=== PATIENT | female | born 1965 | race African-American/Black ===

== ENCOUNTER 2017-06-29 09:38 | Emergency (ER) | payer OTHER ==
[2017-06-29] MEDS ORDERED: KETOROLAC 30 MG/ML 1 ML VIAL IVP STA (10:30)
[2017-06-29] MEDS ORDERED: DEXAMETHASONE SOD PHOSPHATE 10 MG/ML 1 ML VIAL IV STA (10:30)
[2017-06-29] MEDS ORDERED: SODIUM CHLORIDE 0.9% 1,000 ML IV SCH (10:30)
[2017-06-29] MEDS ORDERED: RX INFO: IV CONTRAST WAS GIVEN 1 EACH MISC MISCELLANE PRN (10:31)
--- NOTE | 2017-06-29 10:35 | ED ---
ENT HPI - General Chief complaint: ENT Stated complaint: SORE THROAT, EAR PAIN Source: patient Mode of arrival: ambulatory Limitations: no limitations - History of Present Illness Initial comments: Patient is a 51-year-old female who presents for evaluation for 5-6 day history of sore throat, bilateral ear pain, cough. Past medical history as below. Patient states over the last 5-6 days she's been having worsening sore throat. She has associated drooling. She had a T-max of 103. She has not tried any Tylenol or Motrin because she "does not do well with medications ". She feels a little bit improved today. Can swallow both liquids and solids. She has an associated productive mucus-like cough. She did cough up some a little bit of blood today. Associated nausea. She states that she is been having sweating episodes as well. She regularly sees a dentist. No poor dentition per se. No known sick contacts. She is visiting from [place]. She currently denies chest pain, shortness of breath, vomiting, diarrhea, pain or burning with urination. - Related Data Previous Rx's Medication Instructions Recorded Amoxic-Pot Clav 875-125Mg 1 tab PO Q12HR #19 tablet 06/29/17 [Augmentin 875-125] Naproxen [Naprosyn] 500 mg PO Q12HR PRN #14 tab 06/29/17 Allergies Allergy/AdvReac Type Severity Reaction Status Date / Time No Known Allergies Allergy Verified 06/29/17 10:41 Review of Systems ROS Statement: Those systems with pertinent positive or pertinent negative responses have been documented in the HPI. ROS Other: All systems not noted in ROS Statement are negative. Past Medical History Past Medical History: No Reported History History of Any Multi-Drug Resistant Organisms: None Reported Past Surgical History: No Surgical Hx Reported Past Psychological History: No Psychological Hx Reported Smoking Status: Never smoker Past Alcohol Use History: None Reported Past Drug Use History: None Reported General Exam Limitations: no limitations General appearance: alert, in no apparent distress Head exam: Present: atraumatic, normocephalic, normal inspection Eye exam: Present: normal appearance, PERRL, EOMI. Absent: scleral icterus, conjunctival injection, periorbital swelling ENT exam: Present: normal exam, mucous membranes moist, other (Bilateral tympanic membranes appear clear. No acute otitis media. Injected nasal turbinates. Posterior oropharynx is very swollen and edematous. Tonsillar swelling. No clear exudates. No fullness to the floor the mouth. No obvious periapical abscesses.). Absent: normal oropharynx Neck exam: Present: normal inspection, other (Tender anterior cervical lymphadenopathy b/l). Absent: tenderness, meningismus, lymphadenopathy Respiratory exam: Present: normal lung sounds bilaterally, other (Clear bilaterally without wheezes rales or rhonchi.). Absent: respiratory distress, wheezes, rales, rhonchi, stridor Cardiovascular Exam: Present: regular rate, normal rhythm, normal heart sounds, other (Cap Refill less than 3 seconds.). Absent: systolic murmur, diastolic murmur, rubs, gallop, clicks GI/Abdominal exam: Present: soft, normal bowel sounds. Absent: distended, tenderness, guarding, rebound, rigid Extremities exam: Present: normal inspection, full ROM, normal capillary refill. Absent: tenderness, pedal edema, joint swelling, calf tenderness Back exam: Present: normal inspection Neurological exam: Present: alert, oriented X3, CN II-XII intact Psychiatric exam: Present: normal affect, normal mood Skin exam: Present: warm, dry, intact, normal color. Absent: rash Course Vital Signs 06/29/17 06/29/17 06/29/17 10:16 12:53 13:43 Temperature 100.0 F H 98 F 98.9 F Pulse Rate 94 81 87 Respiratory 20 18 16 Rate Blood Pressure 140/83 139/88 147/92 O2 Sat by Pulse 98 97 94 L Oximetry Medical Decision Making - Medical Decision Making Patient is a 51-year-old female who presents for evaluation for sore throat, drooling, fevers, bilateral ear pain and productive cough over the last I've to 6 days. Somewhat improved but pain still persists. She is tachycardic at 94, tachypnea 20. Low-grade fever of 100.0. 2 out of 4 surgical criteria with suspected source being upper respiratory. Ordered 30 mL per KG bolus with basic labs and cultures. We'll do a CT of the soft tissue neck. 2 view chest x -ray. Decadron. Toradol. No known medical conditions and is regularly seen by a physician. 1145: I reevaluated the patient. She states that she has some symptomatic improvement with medications. Reviewed CBC and CMP. Within normal limits. Awaiting imaging. -CT imaging revealed no epiglottitis or retropharyngeal abscess. I spoke with radiologist who again confirmed that in the read. She does have evidence of tonsillitis with multiple anterior cervical lymph nodes. Her strep test was positive. I reviewed her laboratory studies which were largely unremarkable. Again reevaluated the patient and she states dramatic improvement in her symptoms. No drooling. Her voice is still a little muffled. Gave a dose of Augmentin here. Discussed that the patient likely has a severe strep throat. We'll discharge home with a course of Augmentin. We'll also provide her prescription for naproxen for pain. Can alternate with Tylenol. I provided her with follow-up. If she decides to stay in the area for a prolonged time. She will otherwise follow up with her primary care physician in [place]. I discussed specific signs and symptoms on when to return to the emergency department for further evaluation. She voiced understanding and will return if she has any worsening symptoms. - Lab Data Result diagrams: 06/29/17 10:54 06/29/17 10:54 Lab Results 06/29/17 06/29/17 06/29/17 Range/Units 10:54 10:54 10:54 WBC 9.8 (3.8-10.6) k/uL RBC 4.18 (3.80-5.40) m/uL Hgb 12.7 (11.4-16.0) gm/dL Hct 39.2 (34.0-46.0) % MCV 93.8 (80.0-100.0) fL MCH 30.3 (25.0-35.0) pg MCHC 32.4 (31.0-37.0) g/dL RDW 13.5 (11.5-15.5) % Plt Count 321 (150-450) k/uL Neutrophils % 71 % Lymphocytes % 16 % Monocytes % 7 % Eosinophils % 2 % Basophils % 1 % Neutrophils # 6.9 (1.3-7.7) k/uL Lymphocytes # 1.6 (1.0-4.8) k/uL Monocytes # 0.7 (0-1.0) k/uL Eosinophils # 0.2 (0-0.7) k/uL Basophils # 0.1 (0-0.2) k/uL PT (9.0-12.0) sec INR (<1.2) APTT (22.0-30.0) sec Sodium 140 (137-145) mmol/L Potassium 3.9 (3.5-5.1) mmol/L Chloride 103 (98-107) mmol/L Carbon Dioxide 28 (22-30) mmol/L Anion Gap 9 mmol/L BUN 9 (7-17) mg/dL Creatinine 0.80 (0.52-1.04) mg/dL Est GFR (MDRD) Af Amer >60 (>60 ml/min/1.73 sqM) Est GFR (MDRD) Non-Af >60 (>60 ml/min/1.73 sqM) Glucose 258 H (74-99) mg/dL Plasma Lactic Acid Mta 1.0 (0.7-2.0) mmol/L Calcium 9.1 (8.4-10.2) mg/dL Magnesium 1.9 (1.6-2.3) mg/dL Total Bilirubin 0.8 (0.2-1.3) mg/dL AST 10 L (14-36) U/L ALT 25 (9-52) U/L Alkaline Phosphatase 83 (38-126) U/L Total Protein 7.2 (6.3-8.2) g/dL Albumin 3.9 (3.5-5.0) g/dL Urine Color Urine Appearance (Clear) Urine pH (5.0-8.0) Ur Specific [place] (1.001-1.035) Urine Protein (Negative) Urine Glucose (UA) (Negative) Urine Ketones (Negative) Urine Blood (Negative) Urine Nitrite (Negative) Urine Bilirubin (Negative) Urine Urobilinogen (<2.0) mg/dL Ur Leukocyte Esterase (Negative) Urine RBC (0-5) /hpf Urine WBC (0-5) /hpf Ur Squamous Epith Cells (0-4) /hpf Hyaline Casts (0-2) /lpf Urine Mucus (None) /hpf Group A Strep Rapid (Negative) 06/29/17 06/29/17 06/29/17 Range/Units 10:54 12:24 12:47 WBC (3.8-10.6) k/uL RBC (3.80-5.40) m/uL Hgb (11.4-16.0) gm/dL Hct (34.0-46.0) % MCV (80.0-100.0) fL MCH (25.0-35.0) pg MCHC (31.0-37.0) g/dL RDW (11.5-15.5) % Plt Count (150-450) k/uL Neutrophils % % Lymphocytes % % Monocytes % % Eosinophils % % Basophils % % Neutrophils # (1.3-7.7) k/uL Lymphocytes # (1.0-4.8) k/uL Monocytes # (0-1.0) k/uL Eosinophils # (0-0.7) k/uL Basophils # (0-0.2) k/uL PT 10.2 (9.0-12.0) sec INR 1.0 (<1.2) APTT 22.4 (22.0-30.0) sec Sodium (137-145) mmol/L Potassium (3.5-5.1) mmol/L Chloride (98-107) mmol/L Carbon Dioxide (22-30) mmol/L Anion Gap mmol/L BUN (7-17) mg/dL Creatinine (0.52-1.04) mg/dL Est GFR (MDRD) Af Amer (>60 ml/min/1.73 sqM) Est GFR (MDRD) Non-Af (>60 ml/min/1.73 sqM) Glucose (74-99) mg/dL Plasma Lactic Acid Mat (0.7-2.0) mmol/L Calcium (8.4-10.2) mg/dL Magnesium (1.6-2.3) mg/dL Total Bilirubin (0.2-1.3) mg/dL AST (14-36) U/L ALT (9-52) U/L Alkaline Phosphatase (38-126) U/L Total Protein (6.3-8.2) g/dL Albumin (3.5-5.0) g/dL Urine Color Yellow Urine Appearance Clear (Clear) Urine pH 6.0 (5.0-8.0) Ur Specific [place] >1.050 H (1.001-1.035) Urine Protein 1+ H (Negative) Urine Glucose (UA) Trace H (Negative) Urine Ketones 1+ H (Negative) Urine Blood Negative (Negative) Urine Nitrite Negative (Negative) Urine Bilirubin Negative (Negative) Urine Urobilinogen 4.0 (<2.0) mg/dL Ur Leukocyte Esterase Negative (Negative) Urine RBC 2 (0-5) /hpf Urine WBC 2 (0-5) /hpf Ur Squamous Epith Cells 14 H (0-4) /hpf Hyaline Casts 3 H (0-2) /lpf Urine Mucus Few H (None) /hpf Group A Strep Rapid Positive A (Negative) Disposition Clinical Impression: Strep throat Disposition: HOME SELF-CARE Condition: Good Instructions: Strep Throat (ED) Prescriptions: Amoxic-Pot Clav 875-125Mg [Augmentin 875-125] 1 tab PO Q12HR #19 tablet Naproxen [Naprosyn] 500 mg PO Q12HR PRN #14 tab PRN Reason: Pain Referrals: None,Stated [Primary Care Provider] - 1-2 days Kevin Marvin MD [REFERRING] - 1-2 days
[2017-06-29] MEDS: SODIUM CHLORIDE 0.9% 500 ML IV SCH ×3 (11:01→13:38)
[2017-06-29 11:17] LABS: Basophils # (A) 0.1 k/uL (0-0.2); Basophils % (A) 1 %; CH 30.5; CHCM 32.7; Eosinophils # (A) 0.2 k/uL (0-0.7); Eosinophils % (A) 2 %; HCT 39.2 % (34.0-46.0); HDW 2.44; HGB 12.7 gm/dL (11.4-16.0); Luc # (Auto) 0.29; Luc % (Auto) 3; Lymphocytes # (A) 1.6 k/uL (1.0-4.8); Lymphocytes % (A) 16 %; MCH 30.3 pg (25.0-35.0); MCHC 32.4 g/dL (31.0-37.0); MCV 93.8 fL (80.0-100.0); Mean Platelet Volume 7.5; Monocytes # (A) 0.7 k/uL (0-1.0); Monocytes % (A) 7 %; Neutrophils # (A) 6.9 k/uL (1.3-7.7); Neutrophils % (A) 71 %; RBC 4.18 m/uL (3.80-5.40); RDW 13.5 % (11.5-15.5); WBC 9.8 k/uL (3.8-10.6); WBC (Perox) 9.11
[2017-06-29 11:24] LABS: Partial Thromboplastin Time 22.4 sec (22.0-30.0); Prothrombin Time 10.2 sec (9.0-12.0)
[2017-06-29 11:28] LABS: ALT 25 U/L (9-52); AST 10 U/L (14-36); Alkaline Phosphatase 83 U/L (38-126); Anion Gap 9 mmol/L; Blood Urea Nitrogen 9 mg/dL (7-17); Calcium 9.1 mg/dL (8.4-10.2); Carbon Dioxide 28 mmol/L (22-30); Chloride 103 mmol/L (98-107); Glucose 258 mg/dL (74-99); Magnesium 1.9 mg/dL (1.6-2.3); Non-African American GFR(MDRD) >60 (>60 ml/min/1.73 sqM); Potassium 3.9 mmol/L (3.5-5.1); Sodium 140 mmol/L (137-145); Total Bilirubin 0.8 mg/dL (0.2-1.3); Total Protein 7.2 g/dL (6.3-8.2)
--- NOTE | 2017-06-29 12:13 | CT ---
EXAMINATION TYPE: CT soft tissue neck w con DATE OF EXAM: 06/29/2017 HISTORY: Patient complains of sore throat and bilateral ear pain. COMPARISON: NONE CT DLP: 603.9 mGycm. Automated Exposure Control for Dose Reduction was Utilized. TECHNIQUE: CT scan of the neck is performed with IV Contrast, patient injected with 100 mL of Omnipa que 300, axial images are obtained, coronal and sagittal reformatted images are reviewed. FINDINGS: Airway: There is prominence of the adenoid tonsils in the posterior nasopharynx and the palatine tons ils. There is marked narrowing or occlusion of the nasopharyngeal airway. Oropharyngeal airway is pat ent. Region of epiglottis and vallecula appears within normal limits. Hypopharyngeal airway leading t o proximal trachea is unremarkable. Visualized lung apices are clear. Parotid/submandibular glands: No gross abnormality seen. Carotid/Vascular Structures: No significant abnormality is seen. Osseous Structures: There is loss of normal cervical curvature. There is mild to moderate spurring an d mild disc space narrowing anteriorly C5-C6 and C6-C7 level. Other: There are prominent bilateral neck lymph nodes. Some lymph nodes are abnormally enlarged, for reference left sided lymph node on axial image 51 inferior parotid space measures 2.2 x 1.2 cm. IMPRESSION: Marked narrowing or occlusion of the nasopharyngeal airway due to prominent palatine and adenoid tonsils. Reactive adenopathy in the neck is felt present bilaterally. No well-formed fluid co llection or abscess is seen. Oral pharyngeal airway and remainder of the airway is patent.
--- NOTE | 2017-06-29 12:37 | XR ---
EXAMINATION TYPE: XR chest 2V DATE OF EXAM: 06/29/2017 COMPARISON: NONE HISTORY: Fever and chest pain, cough TECHNIQUE: Frontal and lateral views of the chest are obtained. FINDINGS: There is no focal air space opacity, pleural effusion, or pneumothorax seen. The cardiac silhouette size is within normal limits. There is overlying artifact. Degenerative disc changes are p resent in the visualized area bronchial wall thickening present. The osseous structures are intact. IMPRESSION: Correlate for bronchitis, reactive airways disease, follow-up as indicated.
[2017-06-29] MEDS ORDERED: AMOXIC-POT CLAV 875-125MG 1 EACH TAB PO STA (12:58)
[2017-06-29 13:06] LABS: Appearance,Urine Clear (Clear); Bilirubin,Urine Negative (Negative); Glucose,Urine (UA) Trace (Negative); Ketones,Urine 1+ (Negative); Leukocyte Esterase,Urine Negative (Negative); Mucus,Urine Few /hpf; Nitrite,Urine Negative (Negative); Particle Count 5409; Protein,Urine 1+ (Negative); RBC,Urine 2 /hpf (0-5); Squamous Epithelial Cell,Urine 14 /hpf (0-4); UA Billing (MACRO vs. MICRO) MICRO; WBC,Urine 2 /hpf (0-5)
[2017-06-29 13:13] LABS: Specific Gravity,Urine >1.050 (1.001-1.035)
[2017-06-29 13:45] VITALS: BP 147/92; PULSE 87; RESP 16; TEMP 98.9
== END 2017-06-29 13:47 | disposition home or self-care (01) ==
LOC: EC 09:38
DX: J02.0 Streptococcal pharyngitis (principal); R00.0 Tachycardia, unspecified; R06.82 Tachypnea, not elsewhere classified; H92.03 Otalgia, bilateral
CPT/HCPCS: 36415; 80053; 83605; 83735; 85025; 85610; 85730; 81001; 87040; 87086; 87430; 71020; 70491; 99284; 96374; 96375; J1100; J1885; Q9967; 87077; 87186